=== PATIENT | male | born 1990 | race Two or more races ===

== ENCOUNTER 2017-03-01 00:23 | Emergency (ER) | payer SELFPAY ==
[~2017-03-01] VITALS: Ht 172.7 cm; Wt 96.2 kg
[2017-03-01 01:13] LABS: Urine Bacteria NONE SEEN /hpf (None Seen); Urine Blood 2+ /uL (Negative); Urine Mucus FEW (None Seen); Urine Specific Gravity 1.023 (1.001-1.035); Urine WBC 666 /hpf (0 - 3)
[2017-03-01 01:37] VITALS: BP 142/58
[2017-03-01] MEDS ORDERED: cefTRIAXone SOD 1,000 MG VL IM ONE (01:45)
== END 2017-03-01 01:52 | disposition home or self-care (01) ==
LOC: ER 00:23
DX: N39.0 Urinary tract infection, site not specified (principal); K21.9 Gastro-esophageal reflux disease without esophagitis
CPT/HCPCS: 81001; 96372; 99283; J0696